=== PATIENT | male | born 1975 | race Two or more races ===

== ENCOUNTER 2017-09-16 00:26 | Emergency (ER) | payer SELFPAY ==
[~2017-09-16] VITALS: Ht 175.3 cm; Wt 79.4 kg
[~2017-09-16 00:26] MED LIST: CLINDAMYCIN HC150 MG ORAL; IBUPROFEN600 MG ORAL; NKM; NORCO 5-325 TA1 EACH ORAL
[2017-09-16] MEDS ORDERED: Tetanus/Diptheria/Pertussis Vaccine 0.5ml Syr IM ONE (00:45)
[2017-09-16] MEDS ORDERED: Norco 5mg/325mg tab ORAL ONE (00:45)
[2017-09-16 01:00] VITALS: BP 123/84
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
[2017-09-16] MEDS ORDERED: DOXYCYCLINE MO100 MG ORAL (01:54)
[2017-09-16] MEDS ORDERED: HYDROCODON-ACE1 EA15 ORAL (01:54)
[2017-09-16] MEDS ORDERED: Cephalexin 500mg cap ORAL ONE (02:00)
[2017-09-16 02:35] VITALS: BP 130/82
[2017-09-16 02:40] VITALS: BP 130/82
== END 2017-09-16 02:40 | disposition home or self-care (01) ==
LOC: EDBD 00:26 → EMR 00:41
DX: S61.412A Laceration without foreign body of left hand, initial encounter (principal); X99.1XXA Assault by knife, initial encounter; Y92.89 Other specified places as the place of occurrence of the external cause; Z23 Encounter for immunization
CPT/HCPCS: 90471; 90715; 99283